=== PATIENT | male | born 1995 | race Caucasian/White ===

== ENCOUNTER 2019-06-17 18:28 | Emergency (ER) | payer BC ==
[~2019-06-17] VITALS: Ht 182.9 cm; Wt 79.0 kg
--- NOTE | 2019-06-17 19:16 | NUR ---
1ST CONTACT C PT. RESTING ON CART IN NAD. STATES CONTACTED [facility] SPRING 2017, C RELAPSE LAST YEAR & IS NOW HAVING SIMILIAR S/S. PT SEEN AT [facility] - FLU. PT STATES 24HR INTERVALS OF FEVER, H/A, L FLANK PAIN. STATES FEELING WELL TODAY BUT WORRIED ABOUT HAVING [facility]. DENIES ANY INTERNATIONAL TRAVELS. AT . WILL CTM. AWARE OF PLAN FOR LABS. CALL LIGHT INREACH.
[2019-06-17 19:37] LABS: BASOPHILS # (AUTO) 0.04 x10^3/uL (0-0.1); BASOPHILS % (AUTO) 1 % (0-1); EOSINOPHILS # (AUTO) 0.12 x10^3/uL (0-0.4); EOSINOPHILS % (AUTO) 2 % (1-7); LYMPHOCYTES # (AUTO) 1.49 x10^3/uL (1-3.4); LYMPHOCYTES % (AUTO) 25 % (22-44); MD NO; MEAN CORPUSCULAR HEMOGLOBIN 30.3 pg (27.5-34.5); MEAN CORPUSCULAR HGB CONC 33.3 g/dL (33.2-36.2); MEAN CORPUSCULAR VOLUME 91.2 fL (81-97); MEAN PLATELET VOLUME 8.8 fL (7.4-10.4); MONOCYTES # (AUTO) 0.89 x10^3/uL (0.2-0.8); MONOCYTES % (AUTO) 15 % (2-9); NEUTROPHILS # (AUTO) 3.47 x10^3/uL (1.8-6.8); NEUTROPHILS % (AUTO) 58 % (42-75); PLATELET COUNT 193 x10^3/uL (130-400); RED BLOOD COUNT 5.26 x10^6/uL (4.38-5.82); RED CELL DISTRIBUTION WIDTH 12.7 % (9.4-14.8)
[2019-06-17 19:46] LABS: ALANINE AMINOTRANSFERASE 32 U/L (12-78); ALBUMIN 4.5 g/dL (3.4-5.0); ANION GAP 5 mmol/L (5-15); CHLORIDE 105 mmol/L (98-107); CREATININE 0.86 mg/dL (0.7-1.3)
--- NOTE | 2019-06-17 19:46 | NUR ---
PHLEB AT BS. PT AWARE [facility] IS SEND OUT LAB. DENIES ANY NEEDS. AMBULATORY TO RESTROOM FOR U/A.
[2019-06-17 19:49] LABS: ALKALINE PHOSPHATASE 96 U/L (45-117); BILIRUBIN,TOTAL 0.7 mg/dL (0.2-1.0); TOTAL PROTEIN 7.8 g/dL (6.4-8.2)
--- NOTE | 2019-06-17 20:00 | NUR ---
UA SENT. DENIES ANY NEEDS. WILL CTM.
[2019-06-17 20:23] LABS: MICROSCOPIC NOT IND
[2019-06-17 20:31] LABS: CULTURE INDICATED? NO
--- NOTE | 2019-06-17 21:31 | NUR ---
MD AT BS, PT AWARE [facility] SMEAR RESULTS COULD BE BACK TONIGHT, PT STATES HE WOULD LIKE TO LEAVE & CALL BACK FOR RESULTS.
[2019-06-17 21:43] LABS: BLD PARASITE SMEAR BLOOD PARASITES SEEN (NONE SEEN)
[2019-06-17 22:30] LABS: BORRELIA SMEAR NO SPIROCHETES SEEN (NONE SEEN)
[2019-06-17 23:01] VITALS: BP 126/56
== END 2019-06-17 23:03 | disposition home or self-care (01) ==
LOC: ED 22:00
DX: B51.9 Plasmodium vivax malaria without complication (principal); R50.81 Fever presenting with conditions classified elsewhere; M79.10 Myalgia, unspecified site
CPT/HCPCS: 36415; 80053; 81003; 82955; 83605; 85025; 85041; 87040; 87207; 88313; 99283

== ENCOUNTER 2019-06-19 15:01 | Emergency (ER) | payer BC ==
[~2019-06-19] VITALS: Ht 182.9 cm; Wt 79.8 kg
[2019-06-19 15:05] VITALS: BP 104/61
--- NOTE | 2019-06-19 15:41 | NUR ---
PT PROVIDED CALL LIGHT, OFFERED BLANKET-AWAITING ORDERS.
--- NOTE | 2019-06-19 15:55 | NUR ---
LAB IN TO DRAW.
== END 2019-06-19 16:44 | disposition home or self-care (01) ==
LOC: ED 15:50
DX: B51.9 Plasmodium vivax malaria without complication (principal); M79.10 Myalgia, unspecified site
CPT/HCPCS: 93005; 99283